=== PATIENT | male | born 1930 | race Caucasian/White ===

== ENCOUNTER 2019-04-19 10:20 | Inpatient (IN) ==
[2019-04-19 11:20] LABS: BASO# 0.02 X1000 (0.0-0.2); BASO% 0.2 % (0.0-0.8); EOS# 0.22 X1000 (0.0-0.7); EOS% 2.6 % (0.0-10.0); HEMATOCRIT 39.2 % (42.0-52.0); HEMOGLOBIN 12.5 g/dL (14.0-18.0); IMM GRAN# 0.01 X1000 (0.0-0.04); IMM GRAN% 0.1 % (0.0-0.5); LYMPH% 21.1 % (20.5-51.1); MCH 29.3 PG (27-31); MCHC 31.9 g/dL (33-37); MONO# 0.99 X1000 (0.11-0.59); MONO% 11.6 % (1.7-9.3); MPV 9.7 FL (7.4-10.4); NEUT% 64.4 % (42.2-75.2); PLT 236 X1000 (130-400); RBC 4.26 XMIL (4.7-6.1); RDW 14.9 % (11.5-14.5); WBC 8.54 X1000 (4.8-10.8)
[2019-04-19 11:29] LABS: ALBUMIN 3.6 g/dL (3.5-5.0); CALCIUM 9.1 mg/dL (8.8-10.2); CREATININE 1.6 mg/dL (0.7-1.2); POTASSIUM 4.5 mmol/L (3.5-5.1); TOTAL BILIRUBIN 0.8 mg/dL (0.20-1.00)
--- NOTE | 2019-04-19 12:20 | Diag Imaging Result Doc PS360 ---
EXAM: CT HEAD W/O CONTRAST 04/19/2019 HISTORY: syncope TECHNIQUE: This exam was performed using automated exposure control, adjustment of mA or kV according to patient size, and/or use of iterative reconstruction technique. COMMENT: There are calcifications in the left vertebral and basilar artery and both internal carotid arteries. There is some encephalomalacia in the left cerebellar hemisphere and there is generalized cerebral atrophy. There are patchy lucencies in the periventricular white matter of both hemispheres and lacunae present in the basal ganglia and thalami bilaterally. These findings were also present on the previous study of 11/10/2017. There is no evidence of mass effect bleed or abnormal extra-axial fluid collection. The calvarium is intact. The visualized paranasal sinuses are clear. IMPRESSION: Chronic ischemic changes and atrophy. Stable since 11/10/2017. Electronically signed by Tyrone Romeo 04/19/2019 12:18 PM
--- NOTE | 2019-04-19 14:19 | EKG Report ---
Test Performed on : 04/19/2019 11:17:12 AM Test Reason : syncope Blood Pressure : / mmHG Vent. Rate : 068 BPM Atrial Rate : 234 BPM P-R Int : 000 ms QRS Dur : 088 ms QT Int : 454 ms P-R-T Axes : 000 059 076 degrees QTc Int : 482 ms Atrial fibrillation. Prolonged QT Abnormal ECG When compared with ECG of 10-NOV-2017 11:40, Nonspecific T wave abnormality now evident in Anterior leads Unconfirmed Result
[2019-04-19 15:22] LABS: BILIRUBIN URINE NEGATIVE (NEGATIVE); BLOOD URINE NEGATIVE (NEGATIVE); CLARITY CLEAR (CLEAR); COLOR YELLOW; GLUCOSE URINE NEGATIVE (NEGATIVE); KETONE URINE TRACE mg/dL (NEGATIVE); LEUKOCYTES URINE NEGATIVE (NEGATIVE); NITRITE URINE NEGATIVE (NEGATIVE); PH URINE 6.5; PROTEIN URINE TRACE mg/dL (NEGATIVE); SP GRAVITY URINE 1.015; UROBILINOGEN URINE NORMAL
[2019-04-19 15:25] LABS: URINE BACTERIA 1+ /HFP; URINE CAST GRANULAR PRESENT /LPF; URINE EPITHELIAL CELLS <10 /HPF (<10); URINE WBC <10 /HPF (<10); URINE YEAST NONE SEEN /HPF
[2019-04-19 15:26] LABS: URINE CRYSTAL NONE SEEN /HPF; URINE SOURCE CLEAN CATCH
[2019-04-19] MEDS ORDERED: HYDROCHLOROTHIAZIDE PO ONE (15:42)
[2019-04-19 16:13] LABS: INR 2.35; PROTIME 27.1 Seconds (11.0-16.0)
[2019-04-19 16:14] LABS: PTT 49.7 Seconds (22.3-41.8)
[2019-04-19] MEDS ORDERED: CATAPRES PO ONE (17:13)
--- NOTE | 2019-04-19 17:22 | PROVIDER DOCUMENTATION ---
This chart was entered by Jacinta Hou Scribe, acting as scribe for Domingo Patel MD. HPI-Syncope/Dizziness - General Chief Complaint: Syncope Stated Complaint: syncope Time Seen by Provider: 04/19/19 10:52 Source: patient, EMS Allergies/Adverse Reactions: Patient Allergies Allergy/AdvReac Type Severity Reaction Status Date / Time clarithromycin Allergy NAUSEA/VOMI Verified 11/10/17 11:51 TING levofloxacin Allergy NAUSEA/VOMI Verified 11/10/17 11:51 TING Home Medications: Home Medication List Medication Instructions Recorded Confirmed Last Taken Type Carvedilol [Coreg] 6.25 mg PO HS 11/10/17 04/19/19 Unknown History Finasteride 5 mg PO DAILY 11/10/17 04/19/19 Unknown History Ipratropium 0.06% Nasal Hunt[place] 2 sprays JAE DAILY 11/10/17 04/19/19 Unknown History [Atrovent 0.06% Nasal [place]] Latanoprost 0.005% Oph Soln 1 drop HS 11/10/17 04/19/19 Unknown History [Xalatan 0.005% Oph Soln] Levothyroxine Sodium 112 mcg PO DAILY 11/10/17 04/19/19 Unknown History Lisinopril 20 mg PO BID 11/10/17 04/19/19 Unknown History Omeprazole 40 mg PO DAILY 11/10/17 04/19/19 Unknown History PRAVAstatin [Pravachol] 40 mg PO QHS 11/10/17 04/19/19 Unknown History Tamsulosin HCl 0.4 mg PO DAILY 11/10/17 04/19/19 Unknown History Warfarin Sodium 5 mg PO DAILY 11/10/17 04/19/19 Unknown History - History of Present Illness-Syncope/Dizzy Nature of Presenting Problem: 88 yowm presents to the ed via ems with a syncopal episode. pt sts he thinks his blood pressure dropped. per ems when aos pt was diaphoretic and had a HR of 45. pt was sitting at the table in [place] with his when syncope occurred. pt on exam is back to baseline and all viatl are in the normal limits Prior Episodes: reports: single episode today Onset/Duration: reports: just prior to arrival Timing: reports: gone now Position/Activity at time of episode: reports: sitting Symptoms prior to episode: reports: none Context: reports: lost consciousness Loss of Consciousness: brief (seconds) Location of injury. (If syncope resulted in an injury.): reports: none Current Symptoms: reports: none/feels normal Recently Seen Here or By Another Healthcare Provider: No Review of Systems - Adult - REVIEW OF SYSTEMS - ADULT Constitutional: denies: chills, fever Eyes: reports: no symptoms reported Ears, Nose, Mouth & Throat: reports: no symptoms reported Cardiovascular: reports: syncope. denies: chest pain, palpitations Respiratory: denies: cough, shortness of breath, wheezing Gastrointestinal: denies: abdominal pain, diarrhea, nausea, vomiting Genitourinary: reports: no symptoms reported Musculoskeletal: denies: back pain, neck pain Integumentary: reports: no symptoms reported Neurological: reports: see HPI, headache/migraines, syncope. denies: dizziness/vertigo, tremors Psychiatric: reports: no symptoms reported Endocrine: reports: no symptoms reported Hematologic/Lymphatic: reports: no symptoms reported Allergic/Immunologic: reports: no symptoms reported All Other Systems: Reviewed and Negative Past History - Adult - PAST MEDICAL HISTORY-ADULT Review of Records: reports: Old Records Reviewed, Nursing Assessment Review, Medications Reviewed, Social history reviewed & non-contributory. 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 - PRIOR SURGERIES/PROCEDURES Surgical/Procedure History: reports: CABG, joint replacement - PRIOR HOSPITALIZATIONS Prior Hospitalizations: reports: for other non-related - IMMUNIZATION STATUS Childhood Immunizations: See Nurse Assessment Flu Vaccine: See Nurse Assessment - FAMILY HISTORY Family History: reviewed, not pertinent - SOCIAL HISTORY Smoking: quit greater than 1 year Substance Use: denies Living Situation: family Physical Exam-General - PHYSICAL EXAM-ADULT Initial Vital Signs Reviewed: Yes - CONSTITUTIONAL General Appearance: appears well, alert, no apparent distress (sx have resolved since being in ed) - EYES Eyes: PERRL/EOMI, pink conjunctivae - HEAD, EARS, NOSE, MOUTH & THROAT HENMT: moist mucous membranes, normal ENT inspection - NECK Neck: non-tender, full range of motion, supple, normal inspection - RESPIRATORY Respiratory: chest non-tender, lungs clear, normal breath sounds - CARDIOVASCULAR Cardiovascular: normal peripheral pulses, regular rate, rhythm - CHEST (BREASTS) Chest/Breast: deferred - GASTROINTESTINAL (ABDOMEN) Abdominal Exam: normal bowel sounds, non tender, soft - GENITOURINARY Male Genitalia: deferred Rectal Exam: deferred Hemoccult Exam: deferred - LYMPHATIC Lymphatic: no adenopathy - MUSCULOSKELETAL Back Exam: normal inspection, no CVA tenderness, no vertebral tenderness Extremity: normal range of motion, non-tender, normal inspection - SKIN Integumentary: normal color, normal turgor, warm/dry - NEUROLOGIC Neurologic: grossly normal - PSYCHIATRIC Psych/Mental Status: normal mood/affect, normal thought content, normal thought process, oriented x 3 Progress - PLAN OF CARE/RESULTS Progress/Plan/Lab Results: Vital Signs - 8 hr 04/19/19 10:26 04/19/19 13:06 04/19/19 15:54 Temperature 98.1 F Pulse Rate 60 69 76 Respiratory Rate 16 18 Blood Pressure 147/75 166/93 185/78 O2 Sat by Pulse Oximetry 94 L 98 99 04/19/19 16:46 04/19/19 17:09 Temperature Pulse Rate 63 Respiratory Rate Blood Pressure 188/94 188/92 O2 Sat by Pulse Oximetry 99 Laboratory Results - last 24 hr 04/19/19 04/19/19 04/19/19 11:00 11:00 11:00 WBC 8.54 RBC 4.26 L Hgb 12.5 L Hct 39.2 L MCV 92.0 MCH 29.3 MCHC 31.9 L RDW Std Deviation 14.9 H Plt Count 236 MPV 9.7 Immature Gran % (Auto) 0.1 Neut % (Auto) 64.4 Lymph % (Auto) 21.1 [place] % (Auto) 11.6 H Eos % (Auto) 2.6 Baso % (Auto) 0.2 Immature Gran # (Auto) 0.01 Neut # (Auto) 5.50 Lymph # (Auto) 1.80 [place] # (Auto) 0.99 H Eos # (Auto) 0.22 Baso # (Auto) 0.02 PT INR PTT (Actin FS) Sodium 138 Potassium 4.5 Chloride 108 H Carbon Dioxide 20 L Anion Gap 10 BUN 24 H Creatinine 1.6 H Estimated GFR/1.73 m2 41 BUN/Creatinine Ratio 15 Glucose 142 H POC Glucose Calculated Osmolality 282 Calcium 9.1 Total Bilirubin 0.80 AST 22 ALT 13 Alkaline Phosphatase 77 Troponin T < 0.010 Total Protein 7.0 Albumin 3.6 Globulin 3.0 Albumin/Globulin Ratio 1.0 Urine Source Urine Color Urine Clarity Urine pH Ur Specific Nunez Urine Protein Urine Ketones Urine Blood Urine Nitrite Urine Bilirubin Urine Urobilinogen Urine Microscopic RBC Urine WBC Urine Microscopic WBC Ur Epithelial Cells Urine Crystals Urine Bacteria Urine Casts Urine Yeast Urine Glucose 04/19/19 04/19/19 04/19/19 14:05 14:46 15:48 WBC RBC Hgb Hct MCV MCH MCHC RDW Std Deviation Plt Count MPV Immature Gran % (Auto) Neut % (Auto) Lymph % (Auto) [place] % (Auto) Eos % (Auto) Baso % (Auto) Immature Gran # (Auto) Neut # (Auto) Lymph # (Auto) [place] # (Auto) Eos # (Auto) Baso # (Auto) PT 27.1 H INR 2.35 PTT (Actin FS) 49.7 H Sodium Potassium Chloride Carbon Dioxide Anion Gap BUN Creatinine Estimated GFR/1.73 m2 BUN/Creatinine Ratio Glucose POC Glucose 101 Calculated Osmolality Calcium Total Bilirubin AST ALT Alkaline Phosphatase Troponin T Total Protein Albumin Globulin Albumin/Globulin Ratio Urine Source CLEAN CATCH Urine Color YELLOW Urine Clarity CLEAR Urine pH 6.5 Ur Specific Nunez 1.015 Urine Protein TRACE A Urine Ketones TRACE Urine Blood NEGATIVE Urine Nitrite NEGATIVE Urine Bilirubin NEGATIVE Urine Urobilinogen NORMAL Urine Microscopic RBC Not Reportable Urine WBC NEGATIVE Urine Microscopic WBC <10 Ur Epithelial Cells <10 Urine Crystals NONE SEEN Urine Bacteria 1+ Urine Casts GRANULAR PRESENT Urine Yeast NONE SEEN Urine Glucose NEGATIVE Orders Category Date Time Status CT HEAD W/O CONTRAST [CT] Stat Exams 04/19/19 11:28 Completed CBC WITH ELECTRONIC DIFF [HEME] Stat Lab 04/19/19 11:00 Completed COMPREHENSIVE METABOLIC PANEL [CHEM] Stat Lab 04/19/19 11:00 Completed PROTIME WITH INR [COAG] Stat Lab 04/19/19 15:48 Completed PTT [COAG] Stat Lab 04/19/19 15:48 Completed TROPONIN T Stat Lab 04/19/19 11:[address] W/POSS RFLX CULT [URINALYSIS] Stat Lab 04/19/19 14:05 Completed Clonidine [Catapres] Med 04/19/19 17:13 Discontinued 0.1 mg PO NOW ONE Hydrochlorothiazide Med 04/19/19 15:42 Discontinued 12.5 mg PO NOW ONE EKG [EKG] Stat Ther 04/19/19 10:52 Draft Result Diagrams: 04/19/19 11:00 04/19/19 11:00 - REASSESSMENT Reassessment #1 Time Reassessed: 11:40 Status: improving ( is with pt in the room. pt still in no distress) Reassessment #2 Time Reassessed: 13:05 Status: unchanged (dr at bedside) Reassessment #3 Time Reassessed: 16:08 Status: unchanged (pt is resting in bed in no distress) - EKG 1 Time of EKG reading by physician:: 11:17 EKG Read and Signed by:: Domingo Patel EKG Interpretation (*Must complete 3 of following elements*): Abnormal Rate: 68 Rhythm: afib Ayden: normal QRS: other (prolonged QT) [place] Interval: normal ST Wave: normal - CT/MRI 1 CT Study: Head Impression: See EMR Report (EXAM: CT HEAD W/O CONTRAST 04/19/2019 HISTORY: syncope TECHNIQUE: This exam was performed using automated exposure control, adjustment of mA or kV according to patient size, and/or use of iterative rec onstruction technique. COMMENT: There are calcifications in the left vertebral and basilar artery and both internal carotid arteries. There is some encephalomalacia in the left cerebellar hemisphere and there is generalized cerebral atrophy. There are patchy lucencies in the periventricular white matter of both hemispheres and lacunae present in the basal ganglia and thalami bilaterally. These findings were also present on the previous study of 11/10/2017. There is no evidence of mass effect bleed or abnormal extra-axial fluid collection. The calvarium is intact. The visualized paranasal sinuses are clear. IMPRESSION: Chronic ischemic changes and atrophy. Stable since 11/10/2017. Electronically signed by Tyrone Romeo 04/19/2019 12:18 PM 04/19/19 1218 Interpreting Physician: Tyrone Romeo MD Dictated Date/Time: 04/19/19 1216 cc: Domingo Patel MD; Tito De Leon MD) - CONSULTS/PCP/HOSPITALIST Notification #1 *Consult/PCP/Hospitalist*: hospitalist dr rea Time Discussed: 17:10 Consult Disposition: Will see in ED, Admit Departure - Departure Date of Disposition Decision: 04/19/19 Time of Disposition Decision: 17:21 DIAGNOSIS: Syncope and collapse, Uncontrolled hypertension Disposition: ADMITTED INPATIENT 09 Certified Medical Emergency: Emergent Condition: Fair Referrals and Follow-Ups: Tito De Leon MD [Primary Care Provider] - - Critical Care Note This patient required my direct & personal management of CC.: No Attestation - Physician/ SHILPI Attestation Patient care was provided by Advanced Practice Provider:: No The physician spent face to face time with patient:: Yes Advanced Practice Provider documentation review:: Supervising physician onsite and consulted in the evaluation and care of this patient. The physician did have a face to face encounter with the patient. This chart was documented by the indicated scribe, (Jacinta Hou Scribe) and accurately reflects the services I performed and decisions made by me, Domingo Patel MD, as attested by the provider's signature.
[2019-04-19] MEDS ORDERED: TYLENOL PO PRN (18:24)
[2019-04-19] MEDS ORDERED: ZOFRAN IV PRN (18:24)
[2019-04-19] MEDS ORDERED: APRESOLINE PO ONE (20:32)
[2019-04-19] MEDS ORDERED: PRAVACHOL PO SCH (21:00)
[2019-04-19] MEDS ORDERED: PRINIVIL PO SCH (21:00)
[2019-04-19] MEDS ORDERED: XALATAN 0.005% OPH SOLN OPH SCH (21:00)
[2019-04-19] MEDS ORDERED: COUMADIN PO SCH (21:00)
[2019-04-19] MEDS ORDERED: COREG PO SCH (21:00)
--- NOTE | 2019-04-19 22:32 | HISTORY AND PHYSICAL ---
CHIEF COMPLAINT: Syncope. HISTORY OF PRESENT ILLNESS: The patient is a very pleasant 88-year-old male who presented to the hospital with his . She notes that they had been out to eat. He was sitting down. He became diaphoretic and passed out. Did not fall or hurt himself. She is unsure of how long he was out. When the ambulance service arrived, he was back awake, alert, oriented and he was in no distress. MEDICATIONS: I do not have an accurate medication list, although he does take blood pressure and cholesterol medications. ALLERGIES: Clarithromycin causing nausea. Levaquin causing nausea. REVIEW OF SYSTEMS: He does have a history of syncope. They have had a workup in the past including stress test, echo and Holter. Notes his blood pressure drops at times. This will cause him to become lightheaded and then it re-equilibrates and his symptoms resolved. Denies any current headaches, blurred vision, change in vision, denies any focalized numbness, tingling, weakness in his extremities. Denies any dysuria, frequency, urgency, hesitancy, constipation, melena, hematochezia. PAST MEDICAL HISTORY: Significant for hypertension and frequent episodes of hypotension, has valvular heart disease, high cholesterol, BPH, hypothyroidism. He has had a CABG as well as joint replacement in the past. FAMILY HISTORY: Positive for hypertension. SOCIAL HISTORY: Patient has a longstanding history of smoking, but stopped greater than a year ago. Does not drink or use illicit substances. He is . PHYSICAL EXAMINATION: VITAL SIGNS: Reviewed. He is afebrile. Temperature 98 degrees, pulse 76, respiratory rate 18, BP 147/75 to 185/78. GENERAL: Patient is awake, alert, very pleasant. He is sitting in the bed. He is in no current respiratory distress. HEENT: Normocephalic. NECK: Supple. HEENT: Normocephalic, atraumatic. JENIFFER. NECK: Is supple. CARDIOVASCULAR: Regular rate. CHEST: Good air movement bilaterally. No wheezing. ABDOMEN: Soft, nondistended. EXTREMITIES: Moves all extremities. ASSESSMENT: 1. Syncope of undetermined origin. 2. History of atrial fibrillation, currently rate controlled. 3. Chronic kidney injury. 4. Hypertension with history of hypotension. PLAN: We are going to continue patient in the hospital. Continue to follow. We will follow his blood pressures. Further orders as needed. cc: Crow Ansari MD
[2019-04-20 03:18] LABS: HEMATOCRIT 38.9 % (42.0-52.0); HEMOGLOBIN 12.6 g/dL (14.0-18.0); MCH 29.4 PG (27-31); MCHC 32.4 g/dL (33-37); MCV 90.7 FL (81-99); MPV 9.8 FL (7.4-10.4); RBC 4.29 XMIL (4.7-6.1); RDW 14.7 % (11.5-14.5); WBC 8.44 X1000 (4.8-10.8)
[2019-04-20 03:27] LABS: CHOLESTEROL 141 mg/dL (0-200); HDL 45 mg/dL (35-55); LDL 86 mg/dL; MAGNESIUM 1.8 mg/dL (1.5-2.7); TRIGLYCERIDES 49 mg/dL (39-160); VLDL 10 mg/dL
[2019-04-20 03:35] LABS: ALBUMIN 3.7 g/dL (3.5-5.0); CALCIUM 9.1 mg/dL (8.8-10.2); CREATININE 1.3 mg/dL (0.7-1.2); POTASSIUM 4.3 mmol/L (3.5-5.1); TOTAL BILIRUBIN 0.8 mg/dL (0.20-1.00); TOTAL PROTEIN 6.3 g/dL (6.3-8.3)
[2019-04-20 03:38] LABS: INR 2.41; PROTIME 27.7 Seconds (11.0-16.0)
[2019-04-20] MEDS ORDERED: PRILOSEC PO SCH (07:00)
[2019-04-20] MEDS ORDERED: SYNTHROID PO SCH (07:00)
[2019-04-20 07:39] VITALS: BP 135/59
[2019-04-20] MEDS ORDERED: APRESOLINE PO SCH (09:00)
[2019-04-20] MEDS ORDERED: ATROVENT 0.06% NASAL SPRAY NAS SCH (09:00)
--- NOTE | 2019-04-20 14:59 | DISCHARGE SUMMARY ---
ADMISSION DATE: 04/19/2019 DISCHARGE DATE: 04/20/2019 CONSULTATIONS: None. PERTINENT PROCEDURES: Head CT. Chronic ischemic changes, and atrophy. DISCHARGE DIAGNOSES: 1. Syncope of undetermined origin. 2. Head CT was negative. 3. Blood pressures have been stable. Heart rate stable. He will be discharged back home to follow up with his primary care physician Dr. Tito De Leon. 4. History of atrial fibrillation, controlled. 5. Chronic kidney injury stable and improved. 6. Hypertension with history of hypotension. Again, blood pressures have remained stable. HOSPITAL COURSE: Briefly, Mr. Agustin is an 88-year-old gentleman with a past medical history significant for hypertension and frequent episodes of hypotension, valvular heart disease, high cholesterol, BPH, and hypothyroidism, who reported to the ED after they had been out to eat. He was sitting down, became diaphoretic, and passed out. He did not fall and hurt himself. The was unsure how long he was out. When the ambulance service arrived, he was back awake, alert, oriented, and in no distress. He was brought to the ED, and was placed in for observation status overnight. Hemodynamically, he has been stable throughout his admission. He was given IV fluids. No more episodes throughout his admission. He will be discharged back home with family. VITAL SIGNS: At time of discharge, temperature 97.6 degrees, heart rate 59, respirations 14, blood pressure 135/59, and O2 97%. DISCHARGE DIET: Healthy heart. DISCHARGE MEDICATIONS: 1. Pravachol 40 mg p.o. at bedtime. 2. Apresoline 12.5 mg p.o. daily. 3. Atrovent 2 sprays nasal daily. 4. Cozaar 50 mg p.o. daily. 5. Sennosides 100 mg p.o. daily. 6. Levothyroxine 112 mcg p.o. daily. 7. Singulair 10 mg p.o. daily. 8. Prilosec 40 mg p.o. daily. 9. Warfarin 6 mg p.o. daily. 10. Xalatan ophthalmic drops 1 drop both eyes at bedtime. FOLLOW-UP: Mr. Agustin is being discharged back home with his . He is to take all medications as prescribed, and follow up with his primary care provider Dr. Tito De Leon within the next 7 to 10 days. He can return to the ED or call 911 for any worsening of symptoms. Dictated by CANDICE Cobb for Crow Ansari MD cc: MD Tito Bowens MD
--- NOTE | 2019-04-20 19:07 | DISCHARGE SUMMARY ---
ADMISSION DATE: 04/19/2019 DISCHARGE DATE: 04/20/2019 ADDENDUM: Patient seen and examined by myself. Full note dictated and discussed with nurse practitioner. On discharge, patient is awake, alert, currently in no distress. He has had no further syncopal episodes. I did discussed with him that he is taken 2 medicines for his BPH, both of which, finasteride and tamsulosin, certainly could cause orthostatic hypotension, although it does not appear as though he had orthostatic hypotension on his last event as he was physically sitting down when the symptoms happen. Regardless, I discussed with him that he should hold both of these until he follows up outpatient with his primary care. cc: Crow Ansari MD
== END 2019-04-20 09:15 | disposition home or self-care (01) | DRG 312 ==
LOC: SUPCPDRO → P.ED 10:20 → P.MEDSURG 19:34
PROVIDERS: ATTEND Family Medicine